=== PATIENT | female | born 1945 | race Caucasian/White ===

== ENCOUNTER 2017-07-01 07:19 | Day surgery (SDC) | payer MEDICARE, OTHER ==
[~2017-07-01] VITALS: Ht 154.9 cm; Wt 58.6 kg
[~2017-07-01 07:19] MED LIST: ALEN10 PO; AMLO5 PO; ASPI325; ASPI81CH PO; Aspirin EC81 MG; CALCIUM PO; CHOL10002 PO; CIPR250 PO; ERGO400 PO; ESCI10 PO; GABA300; GABA300 PO; HYDACE10A; INSDET100; INSN100I; INSR10I; INSUASPI; INSUASPI SC; INSULANI; INSULANI SC; LEVO T; LEVSOD75; LEVSOD88 PO; LISI10; LISI20 PO; LISI5 PO; LOSA50 PO; NIFE30ER; NIFE30ER PO; NOVOL; Novolog100 UNIT/1; OSEL75CA PO; POLY17UD PO; PROLIA; PROLIA60 MG/1 ML; PROM25 PO; Pepto-Bismol262 M1; Peri-Colace Ta1 EACH PO; SIMV10 PO; Simvastatin20 MG PO; TIROSINT112 MCG PO; TRAM50; VITAMIN D35000 UNI1 PO
== END 2017-07-01 10:30 | disposition home or self-care (01) ==
LOC: ORSCSDS 07:19
PROVIDERS: Internal Medicine Gastroenterology
PROC: 0DBL8ZX Excision of Transverse Colon, Via Natural or Artificial Opening Endoscopic, Diagnostic (ICD-10-PCS; principal; 2017-07-01 08:45)
PROC: 0DBP8ZX Excision of Rectum, Via Natural or Artificial Opening Endoscopic, Diagnostic (ICD-10-PCS; principal; 2017-07-01 08:45)
PROC: 0DBE8ZX Excision of Large Intestine, Via Natural or Artificial Opening Endoscopic, Diagnostic (ICD-10-PCS; principal; 2017-07-01 08:45)
DX: Z12.11 Encounter for screening for malignant neoplasm of colon (principal); Z86.010 Personal history of colon polyps; D12.3 Benign neoplasm of transverse colon; K63.5 Polyp of colon; K62.1 Rectal polyp; K52.832 Lymphocytic colitis; K64.8 Other hemorrhoids; I10 Essential (primary) hypertension; E10.42 Type 1 diabetes mellitus with diabetic polyneuropathy; E10.3599 Type 1 diabetes mellitus with proliferative diabetic retinopathy without macular edema, unspecified eye; F17.210 Nicotine dependence, cigarettes, uncomplicated; Z79.899 Other long term (current) drug therapy; Z79.82 Long term (current) use of aspirin
CPT/HCPCS: 82947; 88305; 88313; J7120

== ENCOUNTER 2020-03-07 08:01 | Day surgery (SDC) | payer MEDICARE, OTHER ==
[~2020-03-07] VITALS: Ht 154.9 cm; Wt 55.7 kg
--- NOTE | 2020-03-07 08:54 | NUR ---
03/07/20 0854 Ena Mccray 2 IV ATTEMPTS BY [facility], 1ST IN L FOREARM WAS TOO PAINFUL SO WAS STOPPED, 2ND IN L AC WAS SUCCESSFUL AND COMORTABLE FOR PT
[2020-03-07] MEDS ORDERED: LEVEMIR100 UNIT/1 (08:59)
== END 2020-03-07 10:28 | disposition home or self-care (01) ==
LOC: ORSCSDS 08:01
PROVIDERS: Ophthalmology
PROC: 08RK3JZ Replacement of Left Lens with Synthetic Substitute, Percutaneous Approach (ICD-10-PCS; principal; 2020-03-07 09:15)
DX: H25.12 Age-related nuclear cataract, left eye (principal); E10.36 Type 1 diabetes mellitus with diabetic cataract; I10 Essential (primary) hypertension; Z79.82 Long term (current) use of aspirin; Z79.4 Long term (current) use of insulin; Z79.899 Other long term (current) drug therapy
CPT/HCPCS: 82947; J2001; J2250; J3010; J3301; J7040; V2632

== ENCOUNTER 2020-07-18 06:52 | Day surgery (SDC) | payer MEDICARE, OTHER ==
[~2020-07-18] VITALS: Ht 154.9 cm; Wt 55.0 kg
[~2020-07-18 06:52] MED LIST changes: +Aspirin EC81 MG PO; +CALCIUM 600 MG PO; +FURO40 PO; +GABAPENTIN600 MG; +Glucagon Emergen1 MG; +LEVEMIR100 UNIT/1; +LEVSOD112 PO; +LOSARTAN POTAS100 M1 PO; +NOVOLOG100 UNIT/2 SC; +PROLIA60 MG/1 ML SC; +TRESIBA FL100 UNIT/2 SC; +VITAMIN D325 MC3 PO; +Ventolin/Prove6.7 GM INH; +ZOCOR20 MG PO
--- NOTE | 2020-07-18 08:01 | NUR ---
07/18/[address] AWARE OF CBG 62 IN PREOP @ 0732. NO FURTHER ORDERS
== END 2020-07-18 09:07 | disposition home or self-care (01) ==
LOC: ORSCSDS 06:52
PROVIDERS: Internal Medicine Gastroenterology
PROC: 0DBK8ZX Excision of Ascending Colon, Via Natural or Artificial Opening Endoscopic, Diagnostic (ICD-10-PCS; principal; 2020-07-18 08:00)
PROC: 0DBM8ZX Excision of Descending Colon, Via Natural or Artificial Opening Endoscopic, Diagnostic (ICD-10-PCS; principal; 2020-07-18 08:00)
PROC: 0DBP8ZX Excision of Rectum, Via Natural or Artificial Opening Endoscopic, Diagnostic (ICD-10-PCS; principal; 2020-07-18 08:00)
PROC: 0DBL8ZX Excision of Transverse Colon, Via Natural or Artificial Opening Endoscopic, Diagnostic (ICD-10-PCS; principal; 2020-07-18 08:00)
PROC: 0DBN8ZX Excision of Sigmoid Colon, Via Natural or Artificial Opening Endoscopic, Diagnostic (ICD-10-PCS; principal; 2020-07-18 08:00)
DX: Z12.11 Encounter for screening for malignant neoplasm of colon (principal); D12.2 Benign neoplasm of ascending colon; D12.3 Benign neoplasm of transverse colon; D12.4 Benign neoplasm of descending colon; D12.5 Benign neoplasm of sigmoid colon; K62.1 Rectal polyp; K52.839 Microscopic colitis, unspecified; Z86.010 Personal history of colon polyps; I10 Essential (primary) hypertension; E10.3599 Type 1 diabetes mellitus with proliferative diabetic retinopathy without macular edema, unspecified eye; E78.5 Hyperlipidemia, unspecified; J44.9 Chronic obstructive pulmonary disease, unspecified; E06.3 Autoimmune thyroiditis; F41.9 Anxiety disorder, unspecified; Z79.4 Long term (current) use of insulin; Z79.899 Other long term (current) drug therapy; F17.210 Nicotine dependence, cigarettes, uncomplicated
CPT/HCPCS: 82947; 88305; J2250; J2405; J2704; J7120

== ENCOUNTER 2023-09-09 07:14 | Day surgery (SDC) | payer MEDICARE, OTHER ==
[~2023-09-09] VITALS: Ht 154.9 cm; Wt 49.7 kg
[2023-09-09] MEDS ORDERED: ALBU2.5V5 (07:59)
[2023-09-09] MEDS ORDERED: FLUTICASONE-SA1 EAC1 (07:59)
[2023-09-09] MEDS ORDERED: TRESIBA FL100 UNIT/2 (07:59)
[2023-09-09] MEDS ORDERED: NOVOLOG FL100 UNIT/2 (08:00)
[2023-09-09] MEDS ORDERED: FUROSEMIDE40 MG/4 M1 (08:00)
[2023-09-09] MEDS ORDERED: POTA10T (08:02)
[2023-09-09] MEDS ORDERED: Lactated Ringer's 1,000 ML IV ONE ×3 (08:26→10:21)
[2023-09-09] MEDS ORDERED: propofoL 50 ML IV ONE ×2 (08:26→10:27)
--- NOTE | 2023-09-09 09:20 | NUR ---
09/09/23 0920 Jeane Damon PT. DENIES PAIN.
--- NOTE | 2023-09-09 10:47 | NUR ---
09/09/23 1047 Jeane Damon PT. WITH RUN OF SVT, TRIED TO CATCH ON MONITOR BUT RAN OUT OF PAPER. PT. ALSO WITH RANDOM PVC'S, AWARE OF ALL THE ABOVE.
[2023-09-09 11:25] VITALS: BP 117/65
== END 2023-09-09 11:25 | disposition home or self-care (01) ==
LOC: ORSCSDS 07:14
PROVIDERS: Internal Medicine Gastroenterology
PROC: 0DBN8ZX Excision of Sigmoid Colon, Via Natural or Artificial Opening Endoscopic, Diagnostic (ICD-10-PCS; principal; 2023-09-09 09:30)
PROC: 0DBL8ZX Excision of Transverse Colon, Via Natural or Artificial Opening Endoscopic, Diagnostic (ICD-10-PCS; principal; 2023-09-09 09:30)
PROC: 0DBM8ZX Excision of Descending Colon, Via Natural or Artificial Opening Endoscopic, Diagnostic (ICD-10-PCS; principal; 2023-09-09 09:30)
DX: K52.831 Collagenous colitis (principal); Z86.010 Personal history of colon polyps; D12.3 Benign neoplasm of transverse colon; D12.4 Benign neoplasm of descending colon; D12.5 Benign neoplasm of sigmoid colon; I10 Essential (primary) hypertension; J44.9 Chronic obstructive pulmonary disease, unspecified; E10.3599 Type 1 diabetes mellitus with proliferative diabetic retinopathy without macular edema, unspecified eye; E78.5 Hyperlipidemia, unspecified; E06.3 Autoimmune thyroiditis; F17.210 Nicotine dependence, cigarettes, uncomplicated; E10.42 Type 1 diabetes mellitus with diabetic polyneuropathy; K21.9 Gastro-esophageal reflux disease without esophagitis; Z79.4 Long term (current) use of insulin; Z79.899 Other long term (current) drug therapy
CPT/HCPCS: 82947; 88305; J2704; J7120

== ENCOUNTER → 2025-03-09 | Outpatient (CLI) | payer MEDICARE, OTHER ==
[~2025-03-09] MED LIST changes: +ALBU2.5V5; +Calcium Carbon500 MG PO; +FLUTICASONE-SA1 EAC1; +FUROSEMIDE40 MG/4 M1; -GABAPENTIN600 MG; +GABAPENTIN600 MG PO; +IMODIUM A-D2 M1 PO; +MONT10T PO; +NOVOLOG FL100 UNIT/2; +POTA10T; +POTA10T PO; +PROAIR DIGIHAL90 MCG INH; +TOUJEO MAX300 UNIT/2 SC; +TRESIBA FL100 UNIT/2; -Ventolin/Prove6.7 GM INH; +[UNRECOGNIZED DRUG - OTHER] SC
[2025-03-09 07:38] LABS: BASOPHILS ABSOLUTE AUTO 0.11 K/mm3 (0.00-0.23); BASOPHILS PERCENT AUTO 2 % (0-2); EOSINOPHILS ABSOLUTE AUTO 0.32 K/mm3 (0.00-0.68); EOSINOPHILS PERCENT AUTO 4 % (0-6); Hematocrit 44.3 % (33.0-51.0); Hemoglobin 14.8 g/dL (11.5-16.0); IMMATURE GRAN ABSOLUTE AUTO 0.02 K/mm3 (0.00-0.10); IMMATURE GRAN PERCENT AUTO 0 % (0-1); LYMPHOCYTES ABSOLUTE AUTO 1.48 K/mm3 (0.84-5.20); LYMPHOCYTES PERCENT AUTO 20 % (21-46); MONOCYTES ABSOLUTE AUTO 0.55 K/mm3 (0.16-1.47); MONOCYTES PERCENT AUTO 8 % (4-13); Mean Corpuscular HGB Conc 33.4 g/dL (31.5-36.5); Mean Corpuscular Volume 99 fL (80-100); NEUTROPHILS ABSOLUTE AUTO 4.78 K/mm3 (1.96-9.15); NEUTROPHILS PERCENT AUTO 66 % (41-73); NRBC ABSOLUTE 0.00 K/mm3 (0.00-0.02); NRBC Auto 0.0 /100 WBC (0.0-0.2); Platelet Count 217 K/mm3 (150-400); RDW Coefficient Variation 14.6 % (11.7-14.2); RDW Standard Deviation 52.6 fL (35.1-46.3)
[2025-03-09 08:04] LABS: Alanine Aminotransfer (ALT/SGP 35.0 U/L (12-78); Albumin, Blood 3.5 g/dL (3.4-5.0); Albumin/Globulin Ratio 0.9 (0.8-1.8); Anion Gap 9.0 mmol/L (3-11); Aspartate Aminotrans (AST/SGOT 30.0 U/L (12-37); Bilirubin, Total 0.6 mg/dL (0.1-1.0); Blood Urea Nitrogen 20.0 mg/dL (8-24); CO2, Blood 30.0 mmol/L (21-32); Calcium, Blood 8.9 mg/dL (8.5-10.1); Chloride, Blood 104.0 mmol/L (98-108); Creatinine, Blood 0.59 mg/dL (0.40-1.00); Globulin, Blood 3.7 g/dL (2.2-4.0); Glucose, Blood 195.0 mg/dL (70-99); Potassium, Blood 3.5 mmol/L (3.5-5.5); Sodium, Blood 139.0 mmol/L (136-145); Total Protein, Blood 7.2 g/dL (6.4-8.2)
== END ==
LOC: LAB 07:04 → LAB SHORT 07:04
PROVIDERS: Internal Medicine Cardiovascular Disease
DX: I10 Essential (primary) hypertension (principal); Z95.0 Presence of cardiac pacemaker; R93.1 Abnormal findings on diagnostic imaging of heart and coronary circulation
CPT/HCPCS: 80053; 85025; 87040